=== PATIENT | male | born 1950 | race Caucasian/White ===

== ENCOUNTER → 2017-03-17 | Outpatient (CLI) | payer OTHER ==
[~2017-03-17] MED LIST: CENTRUM SILVER1 TA2 PO; Coumadin5 MG PO; Ecotrin325 MG PO; METOPROLOL SUCC50 M1 PO; PERPHENAZINE2 MG PO; PRILOSEC20 MG PO; SIMVASTATIN40 MG PO; TERAZOSIN5 MG PO; TOPROL XL100 MG PO; TRAZODONE HYDR150 MG PO; TRAZODONE100 MG PO; VIAGRA100 MG PO; WELLBUTRIN100 MG PO
== END | disposition home or self-care (01) ==
LOC: US 07:23
DX: Z13.6 Encounter for screening for cardiovascular disorders (principal); T65.294S Toxic effect of other tobacco and nicotine, undetermined, sequela

== ENCOUNTER → 2021-03-14 | Outpatient (CLI) | payer OTHER | END | disposition home or self-care (01) | LOC: RAD 11:55 | PROVIDERS: ATTEND Chiropractor | DX: M53.3 Sacrococcygeal disorders, not elsewhere classified (principal); M54.5 Low back pain ==

== ENCOUNTER → 2024-02-25 | Outpatient (CLI) | payer OTHER | END | disposition home or self-care (01) | LOC: US 09:53 | PROVIDERS: ATTEND Nurse Practitioner Family | DX: K76.0 Fatty (change of) liver, not elsewhere classified (principal); I10 Essential (primary) hypertension; E78.5 Hyperlipidemia, unspecified; R79.89 Other specified abnormal findings of blood chemistry ==